=== PATIENT | male | born 1950 | race Caucasian/White ===

== ENCOUNTER 2016-10-05 12:10 | Day surgery (SDC) | payer MEDICARE, OTHER ==
[2016-10-05] MEDS ORDERED: LACTATED RINGERS 1,000 ML ONE (12:26)
[2016-10-05] MEDS ORDERED: IV START KIT ONE (12:27)
[2016-10-05] MEDS ORDERED: CEFAZOLIN SODIUM 2 GRAM PREMIX 100 ML IV ONE (12:27)
[2016-10-05] MEDS ORDERED: SPINAL PROCEDURAL TRAY 1 EACH ONE (14:59)
[2016-10-05] MEDS ORDERED: MIDAZOLAM HCL 5 MG/5 ML VIAL ONE ×3 (15:05→16:24)
[2016-10-05] MEDS ORDERED: FENTANYL 100 MCG/2 ML VIAL ONE (15:05)
[2016-10-05] MEDS ORDERED: OPIUM/BELLADONNA ALKALOIDS 1 EACH SUP PR ONE (15:37)
[2016-10-05] MEDS ORDERED: METOCLOPRAMIDE HCL 5 MG/ML 2ML VIAL ONE (16:49)
[2016-10-05] MEDS ORDERED: DIPHENHYDRAMINE HCL 50 MG/1 ML VIAL ONE (16:49)
[2016-10-05] MEDS ORDERED: FAMOTIDINE 10 MG/ML 2ML VIAL ONE (16:49)
[2016-10-05] MEDS ORDERED: MIDAZOLAM HCL 1 MG/ML 2ML VIAL ONE (17:00)
[2016-10-05] MEDS ORDERED: ATROPINE SULFATE 0.4 MG/1 ML VIAL IV PRN (17:32)
[2016-10-05] MEDS ORDERED: NALOXONE HCL 0.4 MG/ML VIAL IV PRN (17:32)
[2016-10-05] MEDS ORDERED: HYDRALAZINE HCL 20 MG/1 ML VIAL IV PRN (17:32)
[2016-10-05] MEDS ORDERED: PROMETHAZINE HCL 25 MG/ML VIAL IM PRN (17:32)
[2016-10-05] MEDS ORDERED: MEPERIDINE 25 MG/ML SYRINGE IV PRN (17:32)
[2016-10-05] MEDS ORDERED: ONDANSETRON 4 MG/2ML 2 ML VIAL IV PRN ×2 (17:32→18:02)
[2016-10-05] MEDS ORDERED: MORPHINE SULFATE 4 MG/ML SYRINGE IV PRN ×2 (17:32→18:51)
[2016-10-05] MEDS ORDERED: BISACODYL 10 MG SUP PR PRN (18:02)
[2016-10-05] MEDS ORDERED: BLISTEX LIPSTICK 1 EACH TP PRN (18:02)
[2016-10-05] MEDS ORDERED: MORPHINE SULFATE 2 MG/ML SYRINGE IV PRN (18:02)
[2016-10-05] MEDS ORDERED: OPIUM/BELLADONNA ALKALOIDS 1 EACH SUP PR PRN (18:02)
[2016-10-05] MEDS ORDERED: MENTHOL/CETYLPYRD 1 EACH LOZENGE PO PRN (18:02)
[2016-10-05] MEDS ORDERED: MORPHINE SULFATE 10 MG/ML SYRINGE IV PRN (18:52)
[2016-10-05] MEDS ORDERED: PUMP TUBING ONE (19:30)
[2016-10-05] MEDS ORDERED: MORPHINE SULFATE 2 MG/ML SYRINGE ONE (19:42)
[2016-10-05] MEDS: LACTATED RINGERS 1,000 ML IV SCH (19:50)
[2016-10-05] MEDS: PHENAZOPYRIDINE HCL 200 MG TABLET PO SCH ×2 (19:50→21:25)
--- NOTE | 2016-10-05 20:22 | OP ---
YAMILET HENRY [id number] DATE OF OPERATION: October 05, 2016 SURGEON: Stan Abernathy M.D. MANAGED CARE MANAGER: None. ANESTHESIA: Spinal. 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 POSTOPERATIVE DIAGNOSES: 1. Bladder outlet obstruction due to prostate enlargement, refractory to alpha josselin. 2. Bladder and prostatic calcifications. PROCEDURE: TRANSURETHRAL RESECTION OF THE PROSTATE AND REMOVAL OF SMALL BLADDER AND PROSTATE CALCULI. SPECIMENS: Chips of prostatic tissue. INDICATIONS: A 65-year-old man with a greater than two year history of chronic urge symptoms and history of recurring urinary tract infections. He had persistent outlet obstruction with chronic retention despite the use of alpha josselin therapy. We did know that he had an elongated prostatic urethra with obstructive prostatic tissues and elevated bladder neck. 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 Biopsy of which was benign. FINDINGS: Patient has essentially a buried penis and the tissue in the genital region causing that makes access to the prostate and bladder with the resectoscope quite difficult. The prostatic fossa was 4.5 cm in length and obstructed by prostate tissue on all aspects. Bladder neck is elevated. There were several small stones in the bladder. His leukoplakia plaques on the bladder wall higher up were noted but not accessible due to distance away from the scope. During the course of the resection, we had to opt for resecting just sufficient tissue to create what will hopefully prove to be an adequate channel. Along the course of the resection, multiple pockets of trapped calculi were encountered. PROCEDURE: The patient was identified and brought to the operating room where spinal anesthetic was applied. Then he was placed in a dorsal lithotomy position. The genital region was prepared and draped sterilely including an [place] drape. The distal urethra was calibrated to 30 Tristanian easily and then we introduced a 27 Tristanian resectoscope sheath with the visual obturator. Immediately we began having difficulties getting through the prostatic urethra into the bladder and had to manipulate the table and leg position until we were able to get it over the bladder neck. The moderately trabeculated bladder wall with its leukoplakia plaques were noted. Several small calcifications were noted sitting in the bladder base. Ureteral orifices were normally disposed. We switched over to a bipolar loop using saline as an irrigant and essentially began resection in the 4 to 5 o'clock and 7 to 8 o'clock positions to spring open the bladder neck region. Then continued taking down the midline prostatic tissue which was obscuring access to the bladder out to the level of the verumontanum. Then we gradually worked upwards along the lateral aspects in the anterior regions. We did not engage in heroic efforts to try to remove all prostatic tissue but rather focused on creating an adequate channel from the bladder neck out past the verumontanum. Chips of tissue were removed through the resectoscope. Bleeding was controlled with cautery with us eventually switching to a button electrode to facilitate a final coagulation. Once we had established an adequate channel, we removed chips and controlled bleeding. The resectoscope was with withdrawn and a 24 Tristanian Crowder catheter passed and left to gravity drainage with 40 mL of water in its balloon. Estimated blood loss less than 100 mL. Resection time approximately 50 minutes. No early complications. Patient was taken in stable condition to the post anesthesia room. Recommendation for future care in the event that this patient requires further transurethral procedures, it is strongly recommended that extra long instruments be used. cc: Stan Abernathy M.D. Michael Sena M.D.
[2016-10-05] MEDS: DOCUSATE SODIUM 250 MG CAPSULE PO SCH (20:58)
[2016-10-05] MEDS: ATENOLOL 50 MG TABLET PO SCH (20:58)
[2016-10-05] MEDS: HYDROCODONE/ACETAMINOPHEN 5/325MG TABLET PO PRN (20:59)
[2016-10-05] MEDS: FAMOTIDINE 20 MG TABLET PO SCH (20:59)
[2016-10-05] MEDS ORDERED: ATORVASTATIN CALCIUM 40 MG TABLET PO SCH (21:00)
[2016-10-05] MEDS ORDERED: POLYETHYLENE GLYCOL 3350 17 G POWD.SUSP PO SCH (21:00)
[2016-10-05 21:51] VITALS: BMI 51.1
[2016-10-06] MEDS ORDERED: SODIUM CHLORIDE 3 L IRRIG BAG 3,000 ML IR ONE ×2 (00:48→06:07)
[2016-10-06] MEDS: HYDROCODONE/ACETAMINOPHEN 5/325MG TABLET PO PRN ×4 (01:02→15:45)
[2016-10-06] MEDS: LACTATED RINGERS 1,000 ML IV SCH ×2 (06:03→14:24)
[2016-10-06] MEDS ORDERED: SODIUM CHLORIDE 3,000 ML IRRIG.SOLN IR PRN (06:10)
[2016-10-06] MEDS ORDERED: FLUOXETINE HCL 20 MG CAPSULE PO SCH (09:00)
[2016-10-06] MEDS ORDERED: AMLODIPINE BESYLATE 5 MG TABLET PO SCH (09:00)
[2016-10-06] MEDS ORDERED: ALLOPURINOL 100 MG TABLET PO SCH (09:00)
[2016-10-06] MEDS ORDERED: LOSARTAN POTASSIUM 50 MG TABLET PO SCH (09:00)
[2016-10-06] MEDS ORDERED: HYDROCHLOROTHIAZIDE 12.5 MG CAP PO SCH (09:00)
[2016-10-06] MEDS: DOCUSATE SODIUM 250 MG CAPSULE PO SCH (09:23)
[2016-10-06] MEDS: FAMOTIDINE 20 MG TABLET PO SCH (09:23)
[2016-10-06] MEDS: PHENAZOPYRIDINE HCL 200 MG TABLET PO SCH ×2 (09:23→15:36)
[2016-10-06] MEDS: ATENOLOL 50 MG TABLET PO SCH (09:23)
[2016-10-06 20:21] VITALS: BP 126/58
--- NOTE | 2016-10-08 09:20 | SURGPATH ---
[facility] [address] [place] [id number] Patient Name: YAMILET HENRY MR#: [id number] : 1950 Gender: M Specimen #: [id number] Collected: 10/05/2016 Received: 10/07/2016 Reported: 10/08/2016 Submitting Phys: EDA REYES Copy To Phys: [facility] Clinical History / Pre-Operative Diagnosis: Bladder neck obstruction Specimen Source / Surgical Procedure Performed: Prostate chips Interpretation: PROSTATE, TRANSURETHRAL RESECTION: - BENIGN GLANDULAR AND STROMAL HYPERPLASIA Electronically Signed Out Miguel Esparza M.D. Gross Description: The specimen is received in formalin labeled with the patient's name and "prostate chips". The specimen consists of a 6.0 x 5.0 x 1.5 cm, 10 g aggregate of villalba rubbery cylindrical tissue fragments. A-E. in [place] Microscopic Description: Microscopic performed. 1: 16903 N40.1
== END 2016-10-06 19:45 | disposition home or self-care (01) ==
LOC: SDC 12:10 → MS 18:20 → SDC 10-06 19:45
PROVIDERS: ATTEND Urology
PROC: 0VT08ZZ Resection of Prostate, Via Natural or Artificial Opening Endoscopic (ICD-10-PCS; principal; 2016-10-05)
DX: N40.1 Benign prostatic hyperplasia with lower urinary tract symptoms (principal); N32.0 Bladder-neck obstruction; R33.8 Other retention of urine; R39.15 Urgency of urination; I25.10 Atherosclerotic heart disease of native coronary artery without angina pectoris; G47.33 Obstructive sleep apnea (adult) (pediatric); Z95.1 Presence of aortocoronary bypass graft; E66.01 Morbid (severe) obesity due to excess calories; M10.9 Gout, unspecified; K21.9 Gastro-esophageal reflux disease without esophagitis; Z88.1 Allergy status to other antibiotic agents; Z87.891 Personal history of nicotine dependence; Z68.43 Body mass index [BMI] 50.0-59.9, adult
CPT/HCPCS: 52601; J1200; A9270 ×21; J3010; J2270 ×2; J2765; J2250 ×4; J7120 ×3; J0690